=== PATIENT | female | born 2000 | race African-American/Black ===

== ENCOUNTER 2025-08-05 09:06 | Emergency (ER) | payer MEDICAID ==
[~2025-08-05] VITALS: Ht 154.9 cm; Wt 66.0 kg
[2025-08-05 09:27] VITALS: TEMP 36.6; O2SAT 100
[2025-08-05] MEDS: LIDOCAINE HCL 1% 20ML VIAL INFIL ONE (10:36)
[2025-08-05 11:09] VITALS: BP 125/55; PULSE 69; RESP 16; O2SAT 100
== END 2025-08-05 11:10 | disposition home or self-care (01) ==
LOC: ER 09:06
DX: S49.92XA Unspecified injury of left shoulder and upper arm, initial encounter (principal); Z98.890 Other specified postprocedural states; X58.XXXA Exposure to other specified factors, initial encounter; Y93.89 Activity, other specified; Y92.89 Other specified places as the place of occurrence of the external cause; Y99.8 Other external cause status
CPT/HCPCS: 99284; 26755; 73130; J2003